=== PATIENT | female | born 1975 | race African-American/Black ===

== ENCOUNTER 2017-01-15 17:41 | Emergency (ER) | payer MEDICAID ==
[~2017-01-15] VITALS: Ht 170.2 cm; Wt 116.0 kg
[2017-01-15 18:08] VITALS: BP 155/98
== END 2017-01-15 19:43 | disposition left against medical advice (07) ==
LOC: ER 17:41
DX: R10.9 Unspecified abdominal pain (principal); Z53.21 Procedure and treatment not carried out due to patient leaving prior to being seen by health care provider

== ENCOUNTER 2017-06-08 15:35 | Observation (INO) | payer MEDICAID ==
[~2017-06-08] VITALS: Ht 172.7 cm; Wt 113.4 kg
[2017-06-08] MEDS ORDERED: ACETAMINOPHEN 500MG TABLET PO ONE (16:15)
== END 2017-06-08 17:40 | disposition home or self-care (01) ==
LOC: L&D 15:35
PROVIDERS: ADMIT Obstetrics & Gynecology; ATTEND Obstetrics & Gynecology
DX: O36.8130 Decreased fetal movements, third trimester, not applicable or unspecified (principal); Z3A.36 36 weeks gestation of pregnancy
CPT/HCPCS: 76815; 76818; 99281; G0378

== ENCOUNTER 2017-06-19 08:26 | Inpatient (IN) | payer MEDICAID ==
[~2017-06-19] VITALS: Ht 162.6 cm; Wt 99.8 kg
[2017-06-19] MEDS ORDERED: DEXT 5%/LR + PITOCIN 20UNITS/L 1,000 ML IV SCH ×2 (08:51→09:21)
[2017-06-19] MEDS ORDERED: LACTATED RINGERS 1,000 ML IV SCH (08:51)
[2017-06-19] MEDS ORDERED: BUTORPHANOL TARTRATE 2 MG/ML VIAL IV PRN (09:00)
[2017-06-19] MEDS ORDERED: METHYLERGONOVINE MALEATE 0.2 MG/ML IM PRN (09:00)
[2017-06-19] MEDS ORDERED: PENICILLIN G POTASSIUM 2.5 MMU in DEXTROSE 5% WATER 50 ML IV SCH (09:00)
[2017-06-19] MEDS ORDERED: NALOXONE HCL 0.4 MG/ML 1ML VIAL IM PRN (09:00)
[2017-06-19] MEDS ORDERED: PENICILLIN G POTASSIUM 5 MMU in DEXT 5% WATER 100 ML IV SCH (09:00)
[2017-06-19] MEDS ORDERED: LIDOCAINE HCL 1% 20ML VIAL (Pyxis) INJ INFIL SCH (09:00)
[2017-06-19] MEDS ORDERED: CARBOPROST TROMETHAMINE 250 MCG/ML AMPUL IM PRN (09:00)
[2017-06-19] MEDS ORDERED: AMPICILLIN 1,000 MG in SODIUM CHLORIDE 0.9% 50 ML IV SCH (09:00)
[2017-06-19 09:09] LABS: BASOPHILS % 0.5 % (0.0-2.0); EOSINOPHILS % 0.6 % (0.0-5.0); HEMATOCRIT. 33.1 % (36.0-48.0); HEMOGLOBIN. 11.1 g/dL (12.0-16.0); LYMPHOCYTES % 20.1 % (20.0-50.0); MEAN CORPUSCULAR HEMOGLOBIN 26.9 pg (28.0-32.0); MEAN CORPUSCULAR VOLUME 79.9 fL (81.0-99.0); MEAN PLATELET VOLUME 9.5 fl (7.4-10.4); MONOCYTES % 4.4 % (2.0-8.0); NEUTROPHILS % 74.4 % (40.0-76.0); PLATELET 232 x1000/uL (130-400); RED BLOOD CELL COUNT 4.14 mill/uL (4.2-5.4); RED CELL DISTRIBUTION WIDTH 13.3 % (11.6-14.6)
[2017-06-19 09:17] LABS: PARTIAL THROMBOPLASTIN TIME 22.1 sec (23.4-31.0); PROTHROMBIN TIME 10.3 sec (9.4-11.6)
[2017-06-19 09:28] LABS: CHLORIDE 104 mEq/L (98-107)
[2017-06-19] MEDS ORDERED: IBUPROFEN 400MG TABLET PO PRN (09:30)
[2017-06-19] MEDS ORDERED: HEMORRHOIDAL SUPP PR PRN (09:30)
[2017-06-19] MEDS ORDERED: BISACODYL 10MG SUPP PR PRN (09:30)
[2017-06-19 09:58] LABS: CLARITY URINE CLEAR (CLEAR); COLOR URINE YELLOW (YELLOW); KETONES URINE 1+ (NEGATIVE); LEUKOCYTE ESTERASE URINE NEGATIVE (NEGATIVE); NITRITE URINE NEGATIVE (NEGATIVE); OCCULT BLOOD URINE 2+ (NEGATIVE); PH URINE 7.5 (4.5-8.0); PROTEIN URINE TRACE (NEGATIVE); SPECIFIC GRAVITY URINE 1.016 (1.005-1.030); UROBILINOGEN URINE 0.2 E.U./dL (0.2-1.0)
[2017-06-19 10:08] LABS: RUBELLA IGG 70.7 IU/mL (4.99-10)
[2017-06-19 10:09] LABS: HEPATITIS B SURFACE ANTIGEN NEGATIVE
[2017-06-19 10:30] LABS: *AMPHETAMINES SCREEN URINE NEGATIVE (NEGATIVE); *BARBITURATES SCREEN URINE NEGATIVE (NEGATIVE); *BENZODIAZEPINES SCREEN URINE NEGATIVE (NEGATIVE); CANNABINOID URINE SCREEN NEGATIVE (NEGATIVE); METHADONE URINE SCREEN NEGATIVE (NEGATIVE); OPIATES URINE SCREEN NEGATIVE (NEGATIVE); PHENCYCLIDINE URINE SCREEN NEGATIVE (NEGATIVE)
[2017-06-19 10:31] LABS: *COCAINE SCREEN URINE PRESUMTIVE POSITIVE (NEGATIVE)
[2017-06-19] MEDS ORDERED: NIFEDIPINE XL 90MG TAB PO NR (11:15)
[2017-06-19] MEDS: MAGNESIUM/ALUMINUM HYDROXIDE/SIMETHICONE 30ML UDC PO SCH ×4 (12:10→22:42)
[2017-06-19] MEDS: SIMETHICONE 80MG TABLET CHEW PO SCH ×3 (12:40→22:43)
[2017-06-19] MEDS ORDERED: MAGNESIUM 20 G PREMIX (L & D) 500 ML IV SCH (13:45)
[2017-06-19] MEDS ORDERED: MAGNESIUM 4 G PREMIX 100 ML IV NR (13:45)
[2017-06-19 17:55] VITALS: BP 155/92
[2017-06-19 18:23] VITALS: BP 152/96
[2017-06-19 19:25] VITALS: BP 151/82
[2017-06-19] MEDS: DOCUSATE SODIUM 100MG CAPSULE PO SCH ×2 (21:00→22:44)
[2017-06-19 22:50] VITALS: BP 155/92
[2017-06-19] MEDS: ACETAMINOPHEN WITH CODEINE 300/30MG TABLET PO PRN (22:54)
[2017-06-20 05:00] VITALS: BP 122/80
[2017-06-20] MEDS: METHYLDOPA 250MG TABLET PO SCH ×3 (06:00→22:34)
[2017-06-20] MEDS ORDERED: METHYLDOPA 500MG TABLET PO SCH (06:00)
[2017-06-20 06:32] LABS: BASOPHILS % 0.1 % (0.0-2.0); EOSINOPHILS % 1.5 % (0.0-5.0); HEMATOCRIT. 29.6 % (36.0-48.0); LYMPHOCYTES % 16.9 % (20.0-50.0); MEAN CORPUSCULAR HEMOGLOBIN 27.1 pg (28.0-32.0); MEAN CORPUSCULAR VOLUME 79.9 fL (81.0-99.0); MEAN PLATELET VOLUME 9.1 fl (7.4-10.4); MONOCYTES % 5.5 % (2.0-8.0); PLATELET 218 x1000/uL (130-400); RED CELL DISTRIBUTION WIDTH 12.9 % (11.6-14.6)
[2017-06-20 07:54] VITALS: BP 128/65
[2017-06-20] MEDS: IBUPROFEN 800MG TABLET PO PRN ×2 (07:54→17:54)
[2017-06-20] MEDS: PRENATAL VIT/FE FUMARATE/FA TABLET PO SCH (07:54)
[2017-06-20] MEDS: SIMETHICONE 80MG TABLET CHEW PO SCH ×4 (07:55→22:37)
[2017-06-20 12:20] VITALS: BP 132/79
[2017-06-20] MEDS: MAGNESIUM/ALUMINUM HYDROXIDE/SIMETHICONE 30ML UDC PO SCH ×3 (12:45→22:38)
[2017-06-20] MEDS: FERROUS SULFATE 325MG TABLET PO SCH ×2 (12:46→17:53)
[2017-06-20] MEDS: ACETAMINOPHEN WITH CODEINE 300/30MG TABLET PO PRN ×2 (12:48→22:36)
[2017-06-20 16:18] VITALS: BP 124/70
[2017-06-20 19:30] VITALS: BP 144/97
[2017-06-20 22:30] VITALS: BP 146/115
[2017-06-21 05:12] VITALS: BP 138/100
[2017-06-21] MEDS: METHYLDOPA 250MG TABLET PO SCH ×2 (05:12→13:14)
[2017-06-21 07:45] VITALS: BP 142/95
[2017-06-21] MEDS ORDERED: INFLUENZA VIRUS VACCINE 0.5ML SYR IM ONE (09:00)
[2017-06-21] MEDS ORDERED: TETANUS, DIPHTHERIA, PERTUSSIS VAC/PF 0.5ML (>7YR OLD) IM ONE (09:00)
[2017-06-21] MEDS: PRENATAL VIT/FE FUMARATE/FA TABLET PO SCH (09:02)
[2017-06-21] MEDS: MAGNESIUM/ALUMINUM HYDROXIDE/SIMETHICONE 30ML UDC PO SCH ×2 (09:02→13:11)
[2017-06-21] MEDS: FERROUS SULFATE 325MG TABLET PO SCH ×2 (09:02→13:11)
[2017-06-21] MEDS: SIMETHICONE 80MG TABLET CHEW PO SCH (13:11)
[2017-06-21] MEDS: IBUPROFEN 800MG TABLET PO PRN (13:59)
[2017-06-21 15:57] VITALS: BP 142/88
== END 2017-06-21 17:00 | disposition home or self-care (01) | DRG 560 ==
LOC: OBSVTOIN 08:26 → L&D 08:26 → 7EST PP/OB 17:31
PROVIDERS: ADMIT Obstetrics & Gynecology; ATTEND Obstetrics & Gynecology
PROC: 10E0XZZ Delivery of Products of Conception, External Approach (ICD-10-PCS; principal; 2017-06-19 09:00)
DX: O99.324 Drug use complicating childbirth (principal); O16.4 Unspecified maternal hypertension, complicating childbirth; F14.10 Cocaine abuse, uncomplicated; O77.0 Labor and delivery complicated by meconium in amniotic fluid; O76 Abnormality in fetal heart rate and rhythm complicating labor and delivery; Z37.0 Single live birth; Z3A.40 40 weeks gestation of pregnancy
CPT/HCPCS: 36415; 80053; 80305; 80353; 81003; 83735; 85025; 85384; 85610; 85730; 86592; 86703; 86762; 86850; 86900; 87340; 90686; 90715; J2590; J3475; J7120